=== PATIENT | female | born 1990 | race Caucasian/White ===

== ENCOUNTER 2016-11-19 09:05 | Emergency (ER) | payer SELFPAY ==
[2016-11-19 09:18] VITALS: TEMP 98.4; BMI 27.1
[2016-11-19] MEDS ORDERED: CEPHALEXIN 500 MG CAP PO ONE (09:29)
[2016-11-19] MEDS ORDERED: OXYCODONE HCL 5 MG TABLET PO ONE (09:29)
--- NOTE | 2016-11-19 09:36 | EDPRACDOC ---
- General Information Chief Complaint: Female Urogenital Problems Stated Complaint: URINARY PROBLEM Time Seen by Provider: 11/19/16 09:21 Information Source: Patient Mode Of Arrival: Car Home Medications: Home Medications Cephalexin Monohydrate [Keflex] 500 mg PO Q6H #28 cap 11/19/16 Medroxyprogesterone Acet [Depo-Provera] 150 mg IM .[id number] 11/19/16 PEG-Electrolytes (Miralax) [Miralax] 17 gm PO DAILY #1 box 11/19/16 Allergies/Adverse Reactions: Allergies Allergy/AdvReac Type Severity Reaction Status Date / Time Penicillins Allergy Hives* Verified 11/19/16 09:14 - History of Present Illness HPI: PT PRESENTS STATING SHE IS HAVING LOWER ABDOMINAL PAIN. STATES SHE THINKS SHE HAS A UTI BUT ALSO THAT HER ABDOMINAL PAIN IS DIFFERENT THAN REGULAR UTI. STATES IT IS A TIGHTENING TYPE PAIN. PT HAS BEEN SEEN FOR SIMILAR SYMPTOMS MULTIPLE TIMES WITH RECENT NEGATIVE CT SCAN AND PELVIC ULTRASOUND. PT ALSO C/O STYE TO LEFT EYE Onset: 1 week Urinary Pain Location: Reports: Suprapubic Symptom Onset: Reports: Spontaneous Pain Severity: Moderate Pain Quality: Reports: Aching History of: Reports: UTI : No (depo) Oral Intake: Normal Urinary Output: Normal Associated Signs and Symptoms: Reports: None ED Past Medical History - History Reviewed Yes Nurses notes reviewed and agree except as marked - Patient Medical History GI/ History: Reports: Gastroesophageal Reflux Psychological History: Reports: Anxiety. Denies: Depression - Social Medical History Smoking Status: Heavy tobacco smoker (5 or more cigarettes/day or daily pipe/ cigar) EDM Review of Systems - Review of Systems ROS Negative Except as Marked: Yes All systems reviewed and were negative except as marked - Physical Exam Constitutional: Alert (Awake), No apparent distress Oriented to: Time, Person, Place Last recorded Vital Signs: Last Vital Signs Temp 98.4 F 11/19/16 09:15 Pulse 99 11/19/16 09:15 Resp 20 11/19/16 09:15 BP 138/77 11/19/16 09:15 Pulse Ox 97 11/19/16 09:15 Oxygen Pulse Oxygen Saturation 97 O2 Device Room Air Oxygen Flow Rate Fraction of Inspired Oxygen ( FIO2) - HEENT Head: Normal ( normocephalic) Eye Exam: Edema (TO LEFT EYELID WITH REDNESS) Oropharynx: Normal (Pharynx:Moist without exudate,Gums-no swelling) Tympanic Membrane: Normal Nose: No Symptoms Reported (septum midline) Neck: Normal (FROM, trachea at midline) - Respiratory/Cardiovascular Respiratory: Normal - CTA (BBS clear to auscultation without adventitious sounds ) Cardiovascular: Normal (RRR without murmur, gallop or rub) - GI Auscultation: Normal (NABS) Palpation: Normal (Soft,No rebound or guarding, non distended) Tenderness: Moderate, Suprapubic Vega's Sign: Negative Rectal Exam: Deferred - Musculoskeletal Back: Normal (Non-Tender) Extremities: Normal (Normal tone, Pulses 2+ No cyanosis or edema, FROM) - Integumentary Skin: Normal, Warm, Dry Lymphatics: Normal (no adenopathy) - Neurologic Memory Impaired: Normal Motor Function: Normal (Normal tone, Pulses 2+ No cyanosis or edema, FROM) Cranial Nerve: Normal (CN II-X11 intact sensation, strength 5/5) Cerebellar: Normal Mood Description: Normal Perception: Normal - Differential Diagnosis Other, UTI - Results 11/19/16 10:00 11/19/16 10:00 Urine Test Neg (NEGATIVE) 11/19/16 09:15 Lab Results 11/19/16 09:15 Urine Test Neg Decision Time to Discharge: 10:36 - Departure Disposition: Home Condition: Stable Final Diagnosis: Chalazion Qualifiers: Laterality: left Qualified Code(s): H00.16 - Chalazion left eye, unspecified eyelid Constipation Qualifiers: Constipation type: unspecified constipation type Qualified Code(s): K59.00 - Constipation, unspecified UTI (urinary tract infection) Qualifiers: Urinary tract infection type: acute cystitis Hematuria presence: without hematuria Qualified Code(s): N30.00 - Acute cystitis without hematuria Instructions: Chalazion (ED), Urinary Tract Infection in Women (ED), Dysuria, Constipation (ED), High Fiber Diet (ED) Education/Counseling Given To: Patient Education/Counseling Given Regarding: Diagnosis, Treatment, Prognosis, Follow Up Referrals: Charmaine Evans PA [Primary Care Provider] - One Week Prescriptions: Cephalexin Monohydrate [Keflex] 500 mg PO Q6H #28 cap PEG-Electrolytes (Miralax) [Miralax] 17 gm PO DAILY #1 box Additional Instructions: WARM COMPRESSES TO LEFT EYE MULTIPLE TIMES A DAY. FOLLOW UP WITH PCP NEXT WEEK. RETURN TO THE ED FOR WORSENING SYMPTOMS OR CONCERNS.
[2016-11-19 09:46] LABS: LEUKOCYTES/URINE NEG (NEGATIVE); NITRITE/URINE NEG (NEGATIVE); RBC/URINE 0-2 (0-5); URINE OCCULT BLOOD NEG (NEG/TRACE)
--- NOTE | 2016-11-19 09:51 | DIRPT ---
CLINICAL DATA: Lower abdominal pain in urinary urgency for 1 week EXAM: ABDOMEN - 2 VIEW COMPARISON: 02/15/2014 FINDINGS: Significantly increased stool throughout colon. Small bowel gas pattern normal. No bowel dilatation or bowel wall thickening. No free intraperitoneal air. Visualized lung bases clear. Mild levoconvex lumbar scoliosis. No urinary tract calcification identified. IMPRESSION: Significantly increased stool throughout colon. Electronically Signed By: Nwe Montaño M.D. On: 11/19/2016 09:49
[2016-11-19 10:20] LABS: AUTOMATED BASOPHIL 0.5 % (0-2); AUTOMATED EOSINOPHIL 3.7 % (0-5); AUTOMATED LYMPH 34.7 % (17-44); AUTOMATED MONOCYTE 7.5 % (3-10); AUTOMATED NEUTROPHIL 53.6 % (45-76); MPV 7.4 fL (7.4-10.4)
[2016-11-19 10:26] LABS: BLOOD UREA NITROGEN 8 MG/DL (7-17); CALC CORRECTED 9.5 MG/DL (8.4-10.2); CALCIUM 8.8 MG/DL (8.4-10.2); CALCULATED OSMOLALITY 261 MOs/Kg (270-290); CHLORIDE 103 mEq/L (98-107); GLUCOSE 78 MG/DL (70-99); SODIUM LEVEL 137 mEq/L (137-146); TOTAL PROTEIN 6.6 G/DL (6.3-8.2)
[2016-11-19 10:41] VITALS: BP 117/82; PULSE 87
== END 2016-11-19 10:50 | disposition home or self-care (01) ==
LOC: ED 09:05
DX: H00.16 Chalazion left eye, unspecified eyelid (principal); K59.00 Constipation, unspecified; N30.00 Acute cystitis without hematuria
CPT/HCPCS: 36415; 74020; 80053; 81001; 81025; 85025; 99284; J3490